=== PATIENT | male | born 1970 | race Caucasian/White ===

== ENCOUNTER 2024-05-07 02:08 | Observation (INO) | payer SELFPAY ==
[2024-05-07] VITALS (12 sets, daily range): BP systolic 114–144; BP diastolic 72–94
[~2024-05-07] VITALS: Ht 165.1 cm; Wt 80.7 kg
[2024-05-07 02:34] LABS: BASO% 0.5 % (0-3); EOS% 3.9 % (0-8); HEMATOCRIT 47.1 % (39.0-50.0); HEMOGLOBIN 15.4 g/dl (14.0-18.0); IMMATURE GRANULOCYTES 0.4 % (0.0-5.0); LYMPH% 39.8 % (15-41); MEAN CELL VOLUME 96.9 fL CALC (80.0-100.0); MEAN CORPUSCULAR HGB 31.7 pG CALC (26.0-32.0); MEAN CORPUSCULAR HGB CONC 32.7 g/dL CAL (32.0-36.0); MONO% 6.7 % (2-13); NEUT# 5.34 thou/uL (1.82-7.42); NEUT% 48.7 % (42-76); RED BLOOD COUNT 4.86 mill/uL (4.70-6.10)
[2024-05-07 02:45] LABS: ALBUMIN 4.3 g/dL (3.2-5.0); ALKALINE PHOSPHATASE 69 u/l (38-126); ANION GAP 13 (6-22 (CALC)); BILIRUBIN, TOTAL 0.5 mg/dL (0.2-1.3); BUN 9 mg/dL (9-20); BUN/CREATININE RATIO 8 (12-20 (CALC)); CARBON DIOXIDE 26 mmol/l (22-30); CHLORIDE 104 mmol/l (95-108); CPK 109 u/l (55-170); CREATININE 1.1 mg/dL (0.7-1.3); ESTIMATED GFR 79 ML/MIN (>=90 (CALC)); MAGNESIUM 1.9 mg/dL (1.6-2.3); POTASSIUM 4.1 mmol/l (3.5-5.1); SGOT/AST 28 u/l (17-59); SODIUM 139 mmol/l (137-146); TOTAL PROTEIN 7.9 g/dL (6.3-8.2)
[2024-05-07] MEDS ORDERED: ACETAMINOPHEN 325 MG/TAB PO PRN (05:00)
[2024-05-07] MEDS ORDERED: MAGNESIUM HYDROXIDE 30 ML UDC PO PRN (05:00)
[2024-05-07] MEDS ORDERED: SODIUM CHLORIDE 0.9% 1,000 ML IV PRN (05:00)
[2024-05-07] MEDS ORDERED: AZITHROMYCIN 250 MG/TAB PO SCH (10:30)
[2024-05-07] MEDS ORDERED: predniSONE 20 MG/TAB PO SCH (10:30)
[2024-05-07 11:29] LABS: BASO% 0.3 % (0-3); EOS% 0.9 % (0-8); HEMATOCRIT 45.8 % (39.0-50.0); HEMOGLOBIN 15.8 g/dl (14.0-18.0); IMMATURE GRANULOCYTES 0.3 % (0.0-5.0); LYMPH% 22.4 % (15-41); MEAN CELL VOLUME 95.8 fL CALC (80.0-100.0); MEAN CORPUSCULAR HGB 33.1 pG CALC (26.0-32.0); MEAN CORPUSCULAR HGB CONC 34.5 g/dL CAL (32.0-36.0); MONO% 7.5 % (2-13); NEUT# 8.02 thou/uL (1.82-7.42); NEUT% 68.6 % (42-76); RED BLOOD COUNT 4.78 mill/uL (4.70-6.10); RED CELL DISTRI WIDTH 13.9 % (11.5-15.5)
[2024-05-07] MEDS ORDERED: ASPIRIN 81 MG/TAB PO SCH (11:30)
[2024-05-07] MEDS ORDERED: Heparin SODIUM (Porcine) 500 ML IV PRN (11:30)
[2024-05-07] MEDS ORDERED: Heparin SODIUM (Porcine) 5,000 UNITS/ML SDV IV ONE (11:30)
[2024-05-07 11:45] LABS: ACT PARTIAL THROMBO TIME 24.3 SECONDS (20.0-32.5)
[2024-05-07 11:47] LABS: PROTHROMBIN TIME 10.5 SECONDS (9.0-12.5)
[2024-05-07] MEDS ORDERED: CLOPIDOGREL BISULFATE 75 MG/TAB TAB PO ONE (12:00)
[2024-05-07] MEDS ORDERED: ENOXAPARIN SODIUM 40 MG/0.4 ML SYR SC SCH (21:00)
== END 2024-05-07 17:52 | DRG 282 ==
LOC: ED 02:08 → ED-I 04:23 → ED 04:37 → MS2 04:38
PROVIDERS: Family Medicine; ADMIT Internal Medicine; ATTEND Internal Medicine
DX: I21.4 Non-ST elevation (NSTEMI) myocardial infarction (principal); F17.200 Nicotine dependence, unspecified, uncomplicated
CPT/HCPCS: G0378; J1644